=== PATIENT | male | born 1990 | race African-American/Black ===

== ENCOUNTER 2017-10-29 21:52 | Emergency (ER) | payer MEDICAID ==
[~2017-10-29] VITALS: Ht 172.7 cm; Wt 64.5 kg
[2017-10-29] MEDS ORDERED: IBUP-2070 PO (22:43)
[2017-10-30] MEDS ORDERED: SODIUM CHLORIDE 0.9% 1,000 ML IV ONE (01:45)
[2017-10-30] MEDS ORDERED: DiphenhydrAMINE HCL 50 MG/ML VIAL IVP ONE (03:15)
[2017-10-30 03:17] VITALS: BP 116/75
== END 2017-10-30 03:18 | disposition home or self-care (01) ==
LOC: EMS 21:57
DX: G43.909 Migraine, unspecified, not intractable, without status migrainosus (principal)
CPT/HCPCS: 96374; 99284; J1200; J7030

== ENCOUNTER 2021-01-26 10:01 | Emergency (ER) | payer MEDICAID ==
[~2021-01-26] VITALS: Ht 172.7 cm; Wt 72.7 kg
[~2021-01-26 10:01] MED LIST: IBUP-2070 PO
[2021-01-26 11:00] VITALS: BP 110/66
== END 2021-01-26 11:39 | disposition home or self-care (01) ==
LOC: EMS 10:01
DX: J02.9 Acute pharyngitis, unspecified (principal); F12.90 Cannabis use, unspecified, uncomplicated
CPT/HCPCS: 99283